=== PATIENT | female | born 1960 | race Caucasian/White ===

== ENCOUNTER 2019-04-18 20:43 | Emergency (ER) | payer OTHER ==
[~2019-04-18] VITALS: Ht 165.1 cm; Wt 108.9 kg
[2019-04-18] MEDS ORDERED: IBU800 MG PO (20:54)
[2019-04-18 21:49] VITALS: BP 191/69
== END 2019-04-18 21:49 | disposition home or self-care (01) ==
LOC: M.ERS 20:43
DX: S90.121A Contusion of right lesser toe(s) without damage to nail, initial encounter (principal); W20.8XXA Other cause of strike by thrown, projected or falling object, initial encounter; Y93.89 Activity, other specified; Y92.89 Other specified places as the place of occurrence of the external cause; Y99.8 Other external cause status

== ENCOUNTER 2019-12-07 21:24 | Inpatient (IN) | payer OTHER ==
[~2019-12-07] VITALS: Ht 165.1 cm; Wt 117.8 kg
[~2019-12-07 21:24] MED LIST: IBU800 MG PO
[2019-12-07 21:44] VITALS: BP 152/67
[2019-12-07] MEDS ORDERED: DEXAMETHASONE 44 M1 PO (22:06)
[2019-12-07 22:07] LABS: URINE BLOOD 2+ (Negative); URINE CLARITY CLEAR; URINE COLOR DARK YELLOW; URINE GLUCOSE-RANDOM TRACE (Negative); URINE KETONES NEGATIVE (Negative); URINE LEUKOCYTES-REFLEX NEGATIVE (Negative); URINE NITRITE-REFLEX NEGATIVE (Negative); URINE PROTEIN 1+ (Negative); URINE SPECIFIC GRAVITY 1.025 (1.005-1.030); URINE UROBILINOGEN 0.2 E.U./dl (0.2-1.0)
[2019-12-07] MEDS ORDERED: ZOFRAN8 MG PO (22:07)
[2019-12-07 22:08] LABS: URINE BILIRUBIN 1+ (Negative)
[2019-12-07] MEDS ORDERED: LIDOCAINE-PRILO30 GM TOP (22:08)
[2019-12-07 22:09] LABS: ICTOTEST (BILI CONFIRMATORY) Negative (Negative)
[2019-12-07 22:15] LABS: HYALINE CASTS >10 Many /LPF (None Seen); MUCUS None Seen strn/LPF (None Seen); SQUAMOUS 4-10 Moderate /LPF (0-3)
[2019-12-07 22:16] LABS: BACTERIA-REFLEX 1-9 Few /HPF (None Seen); URINE RBC 3-10 Few /HPF (0-2); URINE WBC-REFLEX 0-5 Rare /HPF (0-5)
[2019-12-07 22:17] LABS: CRYSTALS None Seen /LPF (None Seen)
[2019-12-07 22:21] LABS: HEMATOCRIT 39.8 % (37.0-47.0); HEMOGLOBIN 14.3 gm/dL (12.0-15.0); MCH 32.3 pg (26.0-34.0); MCHC 35.9 g/dL (28.0-37.0); MPV 11.4 fl. (7.2-11.1); NUCLEATED RBCS 0 /100WBC; RBC 4.42 mil/uL (4.20-5.00); RDW-CV 12.8 % (10.5-14.5); WBC 2.1 thou/uL (4.0-11.0)
[2019-12-07 22:41] LABS: CALCIUM 6.9 mg/dL (8.5-10.1); CREATININE 1.6 mg/dL (0.6-1.3); POTASSIUM 3.1 mmol/L (3.5-5.1)
[2019-12-07 22:45] LABS: ALBUMIN 2.4 g/dL (3.4-5.0); MAGNESIUM 3.6 mg/dL (1.8-2.4); TOTAL BILIRUBIN 3.4 mg/dL (<0.1-1.0); TOTAL PROTEIN 6.1 g/dL (6.4-8.2)
[2019-12-07 23:29] LABS: ABSOLUTE LYMPHOCYTES 1.3 thou/uL (0.8-5.3); ABSOLUTE MONOCYTES 0.3 thou/uL (0.0-1.2); ABSOLUTE NEUTROPHILS 0.5 thou/uL (1.6-8.1)
[2019-12-07 23:30] LABS: PLATELET ESTIMATE DECREASED
[2019-12-07 23:32] LABS: PLATELET COUNT* 47 thou/uL (150-400)
[2019-12-08 01:00] VITALS: BP 157/76
[2019-12-08 07:46] VITALS: BP 150/66
[2019-12-08 08:09] LABS: CHOLESTEROL 133 mg/dL (<200); HDL CHOLESTEROL 40 mg/dL (>40); LDL CHOLESTEROL 70 mg/dL (<100); TC:HDL 3.3 Ratio (Not establshd); TRIGLYCERIDE 115 mg/dL (<150); VLDL 23 mg/dL (<40)
[2019-12-08 08:14] LABS: SERUM ASSESSMENT Clear
[2019-12-08 09:55] LABS: HEMATOCRIT 37.1 % (37.0-47.0); HEMOGLOBIN 13.2 gm/dL (12.0-15.0); MCH 32.6 pg (26.0-34.0); MCHC 35.5 g/dL (28.0-37.0); MCV 91.6 fL (80.0-100.0); MPV 11.9 fl. (7.2-11.1); NUCLEATED RBCS 0 /100WBC; RBC 4.05 mil/uL (4.20-5.00); RDW-CV 12.9 % (10.5-14.5); WBC 2.9 thou/uL (4.0-11.0)
--- NOTE | 2019-12-08 09:55 | EKG ---
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 : 1960 Requested By: Vanessa Blount Order Number: [id number] MD: Rubio Jasso Measurements Intervals [place] Rate: 100 P: -29 WA: 172 QRS: 4 QRSD: 105 T: -46 QT: 374 QTc: 483 Interpretive Statements Sinus tachycardia Atrial premature complex Anterior infarct, old Borderline T abnormalities, inferior leads Baseline wander in lead(s) I,II,aVR No previous ECG available for comparison Electronically Signed On 12-08-2019 9:54:13 CDT by Rubio Jasso [email or web address] <ELECTRONICALLY SIGNED> By: Rubio Jasso MD, FACC 12/08/19 0954 2259 2259 Rubio Jasos MD, FAC /EPI
[2019-12-08 10:12] LABS: PLATELET COUNT* 44 thou/uL (150-400)
[2019-12-08 10:21] LABS: CALCIUM 6.3 mg/dL (8.5-10.1); CREATININE 1.7 mg/dL (0.6-1.3); MAGNESIUM 3.1 mg/dL (1.8-2.4); POTASSIUM 3.6 mmol/L (3.5-5.1)
--- NOTE | 2019-12-08 10:29 | 2DMMODE ---
[place] [address] 2 D/M-MODE ECHOCARDIOGRAM Name: ELSIELINUSGREY Room: [address] IN M.R.#: [id number] Admission: 12/07/19 Attend Phys: Riley moncada Sa Discharge: Date of : 64 Date of Service: 12/08/19 1027 Report #: [id number] THIS REPORT FOR: cc: FAM - No family physician/PCP FAM - No family physician/PCP Nelson Wood MD [facility] ~ APPROVED REPORT Study performed: 12/08/2019 09:30:06 EXAM: Limited 2D Echocardiogram Patient Location: In-Patient BSA: 2.04 HR: 97 bpm BP: 150/66 mmHg Other Information Study Quality: Fair Indications Dyspnea 2D Dimensions IVSd: 11.54 (7-11mm) LVOT Diam: 19.81 (18-24mm) LVDd: 51.78 mm PWd: 9.49 (7-11mm) Ascending Ao: 24.19 (22-36mm) LVDs: 26.17 (25-40mm) Aortic Root: 25.58 mm Volumes Left Atrial Volume (Systole) LA ESV Index: 18.70 mL/m2 Left Ventricle The left ventricle is normal size. There is normal LV segmental wall motion. There is normal left ventricular wall thickness. Left ventricular systolic function is normal. LVEF is 65-70%. Right Ventricle The right ventricle is normal size. The right ventricular systolic function is normal. Atria The left atrium size is normal. The right atrium size is [facility] [address] [place] [address] 2 D/M-MODE ECHOCARDIOGRAM Name: GREY CHERRY Room: [address] IN [facility]#: [id number] Admission: 12/07/19 Attend Phys: Riley calvin los Sa Discharge: Date of : 64 Date of Service: 12/08/19 1027 Report #: [id number] normal. Great Vessels The aortic root is normal in size. IVC is normal in size and collapses >50% with inspiration. Pericardium There is no pericardial effusion. <Conclusion> The left ventricle is normal size. There is normal left ventricular wall thickness. Left ventricular systolic function is normal. LVEF is 65-70%. IVC is normal in size and collapses >50% with inspiration. There is no pericardial effusion. <ELECTRONICALLY SIGNED> By: Nelson Wood MD, [facility] 12/08/19 1027 1027 1027 Nelson Wood MD, FACC /INF
[2019-12-08 10:38] LABS: ABSOLUTE LYMPHOCYTES 1.6 thou/uL (0.8-5.3); ABSOLUTE MONOCYTES 0.5 thou/uL (0.0-1.2); ABSOLUTE NEUTROPHILS 0.8 thou/uL (1.6-8.1); PLATELET ESTIMATE DECREASED
[2019-12-08 11:50] VITALS: BP 154/87
--- NOTE | 2019-12-08 12:11 | EKG ---
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 <ELECTRONICALLY SIGNED> By: Nelson Wood MD, [facility] 12/08/19 1209 0 0 Nelson Wood MD, [facility] /EPI
[2019-12-08 17:02] VITALS: BP 152/55
[2019-12-08 19:40] VITALS: BP 135/60
[2019-12-08 19:50] VITALS: BP 103/59
[2019-12-09 00:01] VITALS: BP 141/56
[2019-12-09 03:45] VITALS: BP 152/66
[2019-12-09 04:24] LABS: HEMATOCRIT 35.3 % (37.0-47.0); HEMOGLOBIN 12.5 gm/dL (12.0-15.0); MCH 32.4 pg (26.0-34.0); MCHC 35.5 g/dL (28.0-37.0); MCV 91.5 fL (80.0-100.0); MPV 11.1 fl. (7.2-11.1); RBC 3.85 mil/uL (4.20-5.00); RDW-CV 12.9 % (10.5-14.5)
[2019-12-09 04:44] LABS: WBC 12.5 thou/uL (4.0-11.0)
[2019-12-09 05:05] LABS: CALCIUM 6.6 mg/dL (8.5-10.1); CREATININE 1.5 mg/dL (0.6-1.3); MAGNESIUM 2.8 mg/dL (1.8-2.4); POTASSIUM 3.8 mmol/L (3.5-5.1)
[2019-12-09 09:08] VITALS: BP 159/64
--- NOTE | 2019-12-09 09:31 | EKG ---
[place] [address] ELECTROCARDIOGRAM REPORT Name: GREY CHERRY Room: [address] ADM IN M.R.#: [id number] Admission: 12/07/19 Attend Phys: Riley moncada Sa Discharge: Date of : 64 Date of Service: 12/09/19 0804 Report #: [id number] THIS REPORT FOR: //name// [facility] Test Date: 2019-12-09 Test Time: 08:04:16 Pat Name: GREY VENEGASNGOCLINUS Department: Room: [address] Gender: F Stage Rigger: KUSH : 1960 Requested By: David Lester Order Number: [id number] Laura MD: Rubio Jasso Measurements Intervals [place] Rate: 72 P: -11 ME: 164 QRS: 15 QRSD: 101 T: -29 QT: 461 QTc: 505 Interpretive Statements Sinus rhythm Borderline T abnormalities, inferior leads Borderline prolonged QT interval Compared to ECG 12/08/2019 09:11:05 No significant changes Electronically Signed On 12-09-2019 9:29:45 CDT by Rubio Jasso [email or web address] <ELECTRONICALLY SIGNED> By: Rubio Jasso MD, [facility] 12/09/19 0929 3 3 Rubio Jasso MD, [facility] /EPI
[2019-12-09 12:00] VITALS: BP 143/48
[2019-12-09 15:46] VITALS: BP 166/48
[2019-12-09 19:40] VITALS: BP 152/62
[2019-12-10] VITALS: BP 142/60
[2019-12-10 04:57] VITALS: BP 176/76
[2019-12-10 08:00] VITALS: BP 149/57
[2019-12-10 12:07] VITALS: BP 171/72
[2019-12-10 16:06] VITALS: BP 154/63
[2019-12-10 19:40] VITALS: BP 168/68
[2019-12-11] VITALS: BP 147/63
[2019-12-11 04:00] VITALS: BP 163/66
[2019-12-11 06:39] LABS: ANION GAP 7 mmol/L (7-16); BUN 38 mg/dL (7-18); CHLORIDE 101 mmol/L (98-107); CO2 28 mmol/L (21-32); CREATININE 1.5 mg/dL (0.6-1.3); GLUCOSE 346 mg/dL (70-99); MAGNESIUM 2.6 mg/dL (1.8-2.4); POTASSIUM 4.3 mmol/L (3.5-5.1); SODIUM 136 mmol/L (136-145); TROPONIN-I LEVEL <0.06 ng/mL (<0.06)
[2019-12-11 07:56] VITALS: BP 136/52
[2019-12-11] MEDS ORDERED: LEVAQUIN 500 M500 M1 PO (08:33)
[2019-12-11] MEDS ORDERED: ACIDOPHILUS1 EAC4 PO (08:33)
[2019-12-11 11:05] VITALS: BP 136/52
== END 2019-12-11 14:21 | disposition home or self-care (01) | DRG 871 ==
LOC: M.ERS 21:24 → M.TBA-ER 23:16 → M.2W 23:16
PROVIDERS: Emergency Medicine; Internal Medicine; Registered Nurse; ADMIT Family Medicine
DX: A41.50 Gram-negative sepsis, unspecified (principal); N17.0 Acute kidney failure with tubular necrosis; E87.1 Hypo-osmolality and hyponatremia; E87.2 Acidosis; Z68.41 Body mass index [BMI] 40.0-44.9, adult; T45.1X5A Adverse effect of antineoplastic and immunosuppressive drugs, initial encounter; K52.9 Noninfective gastroenteritis and colitis, unspecified; E87.6 Hypokalemia; I10 Essential (primary) hypertension; E86.9 Volume depletion, unspecified; K12.1 Other forms of stomatitis; E86.0 Dehydration; I45.81 Long QT syndrome; C50.919 Malignant neoplasm of unspecified site of unspecified female breast; E66.9 Obesity, unspecified; D70.1 Agranulocytosis secondary to cancer chemotherapy; D69.59 Other secondary thrombocytopenia; Z79.899 Other long term (current) drug therapy; Y92.89 Other specified places as the place of occurrence of the external cause

== ENCOUNTER 2019-12-14 17:04 | Inpatient (IN) | payer OTHER ==
[~2019-12-14] VITALS: Ht 165.1 cm; Wt 144.0 kg
[~2019-12-14 17:04] MED LIST changes: +ACIDOPHILUS1 EAC4 PO; +DEXAMETHASONE 44 M1 PO; +LEVAQUIN 500 M500 M1 PO; +LIDOCAINE-PRILO30 GM TOP; +ZOFRAN8 MG PO
[2019-12-14 17:11] VITALS: BP 135/63
[2019-12-14 17:30] LABS: HEMATOCRIT 32.4 % (37.0-47.0); MCH 32.1 pg (26.0-34.0); MCV 94.3 fL (80.0-100.0); MPV 10.2 fl. (7.2-11.1); NUCLEATED RBCS 1 /100WBC; PLATELET COUNT* 105 thou/uL (150-400); RBC 3.43 mil/uL (4.20-5.00); RDW-CV 12.9 % (10.5-14.5)
[2019-12-14 17:44] LABS: CALCIUM 7.5 mg/dL (8.5-10.1); CREATININE 1.8 mg/dL (0.6-1.3); POTASSIUM 4.7 mmol/L (3.5-5.1); TOTAL BILIRUBIN 1.3 mg/dL (<0.1-1.0); TOTAL PROTEIN 4.7 g/dL (6.4-8.2)
[2019-12-14 17:56] LABS: ABSOLUTE LYMPHOCYTES 3.5 thou/uL (0.8-5.3); ABSOLUTE MONOCYTES 1.4 thou/uL (0.0-1.2); ABSOLUTE NEUTROPHILS 30.1 thou/uL (1.6-8.1)
[2019-12-14 17:57] LABS: PLATELET ESTIMATE DECREASED; POLYCHROMASIA 1+
[2019-12-14 17:58] LABS: ANISOCYTOSIS Occasional
--- NOTE | 2019-12-14 18:36 | NUR ---
PT GIVEN CLEAR LIQUID DIET DINNER TRAY, PLACED ON SIDE TABLE.
[2019-12-14 19:59] VITALS: BP 157/71
[2019-12-14 20:30] VITALS: BP 155/63
[2019-12-15 00:16] VITALS: BP 157/61
[2019-12-15 04:09] VITALS: BP 145/59
[2019-12-15 05:36] LABS: HEMATOCRIT 30.3 % (37.0-47.0); HEMOGLOBIN 10.4 gm/dL (12.0-15.0); MCH 32.3 pg (26.0-34.0); MCHC 34.4 g/dL (28.0-37.0); MCV 93.8 fL (80.0-100.0); MPV 10.2 fl. (7.2-11.1); RBC 3.23 mil/uL (4.20-5.00); RDW-CV 12.9 % (10.5-14.5); WBC 32.8 thou/uL (4.0-11.0)
[2019-12-15 05:52] LABS: ALBUMIN 1.9 g/dL (3.4-5.0); CALCIUM 6.8 mg/dL (8.5-10.1); CREATININE 1.7 mg/dL (0.6-1.3); MAGNESIUM 1.7 mg/dL (1.8-2.4); POTASSIUM 4.5 mmol/L (3.5-5.1); TOTAL BILIRUBIN 1.3 mg/dL (<0.1-1.0); TOTAL PROTEIN 4.3 g/dL (6.4-8.2)
--- NOTE | 2019-12-15 07:20 | NUR ---
CHANGE OF SHIFT, BEDSIDE REPORT GIVEN PATIENT SEEN AT BEDSIDE, IN CHAIR WATCHING TV ASSUMED APTIENT CARE
--- NOTE | 2019-12-15 07:36 | NUR ---
RECEIVED PT FROM ED AT APPROX 2030. PT IS AWAKE AND ORIENTED X4. PT IS TRACING SR ON THE ALL SOURCE INTELLIGENCE. ADMISSION ASSESSMENT DONE AND CHARTED. PT C/O NAUSEA RELIEVED BY ZOFRAN GIVEN PER OCT. IV HYDRATION ONGOING. PT ADVISED ON THE USE OF CALL LIGHT AND ON ROOM SET UP. CALL LIGHT WITHIN REACH. HOURLY ROUNDING DONE FOR PT SAFETY. HIGH FALL PRECAUTIONS IN PLACE.
[2019-12-15 08:00] VITALS: BP 172/65
--- NOTE | 2019-12-15 09:21 | EKG ---
[place] [address] ELECTROCARDIOGRAM REPORT Name: GREY CHERRY Room: [address] ADM IN M.R.#: [id number] Admission: 12/14/19 Attend Phys: David Lester, Discharge: Date of : 64 Date of Service: 12/14/19 183 Report #: [id number] THIS REPORT FOR: //name// [facility] ED Test Date: 2019-12-14 Test Time: 18:31:24 Pat Name: GREY CHERRY Department: Room: [facility] Gender: F Pattern Weaver: : 1960 Requested By: Mahad Ybarra Order Number: [id number] MD: Dayron Miramontes Measurements Intervals [place] Rate: 96 P: 68 LA: 147 QRS: 30 QRSD: 82 T: 50 QT: 380 QTc: 481 Interpretive Statements Sinus rhythm Baseline wander in lead(s) V3 Compared to ECG 12/09/2019 08:04:16 T-wave abnormality no longer present Electronically Signed On 12-15-2019 9:19:47 CDT by Dayron Miramontes [email or web address] <ELECTRONICALLY SIGNED> By: Dayron Miramontes MD, FAC 12/15/19 0919 30 30 Dayron Miramontes MD, FAC /EPI
[2019-12-15 11:42] VITALS: BP 158/66
--- NOTE | 2019-12-15 14:59 | EKG ---
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 Steward/Stewardess: : 1960 Requested By: David Lester Order Number: [id number] Laura MD: Dayron Miramontes Measurements Intervals [place] Rate: 95 P: 57 ND: 148 QRS: 16 QRSD: 91 T: 40 QT: 397 QTc: 499 Interpretive Statements Sinus rhythm Borderline prolonged QT interval Compared to ECG 12/14/2019 18:31:24 No significant changes Electronically Signed On 12-15-2019 14:57:37 CDT by Dayron Miramontes [email or web address] <ELECTRONICALLY SIGNED> By: Dayron Miramontes MD, [facility] 12/15/19 1457 0906 0906 Dayron Miramontes MD, [facility] /EPI
[2019-12-15 16:47] VITALS: BP 155/58
[2019-12-15 20:06] VITALS: BP 156/65
[2019-12-16 00:40] VITALS: BP 134/46
[2019-12-16 04:28] VITALS: BP 145/61
[2019-12-16 04:45] LABS: HEMATOCRIT 28.7 % (37.0-47.0); MCH 32.4 pg (26.0-34.0); MCHC 34.8 g/dL (28.0-37.0); MCV 93.3 fL (80.0-100.0); MPV 10.1 fl. (7.2-11.1); RBC 3.08 mil/uL (4.20-5.00); RDW-CV 13.2 % (10.5-14.5); WBC 31.4 thou/uL (4.0-11.0)
[2019-12-16 05:07] LABS: ALBUMIN 1.8 g/dL (3.4-5.0); CALCIUM 7.2 mg/dL (8.5-10.1); CREATININE 1.8 mg/dL (0.6-1.3); TOTAL BILIRUBIN 1.3 mg/dL (<0.1-1.0); TOTAL PROTEIN 4.2 g/dL (6.4-8.2)
--- NOTE | 2019-12-16 05:34 | NUR ---
PT IS ABLE TO COMMUNICATE HER NEEDS TO STAFF EFFECTIVELY. SHE HAS DENIED THE NEED FOR PAIN MEDICATION UP TO THIS TIME. C. DIFF TESTING CAME BACK NEGATIVE. PT HAD ONE INSTANCE OF NAUSEA, SO FAR, OVERNIGHT; MEDS GIVEN, TOLERATED WELL.
[2019-12-16 08:53] VITALS: BP 146/57
--- NOTE | 2019-12-16 09:04 | NUR ---
Pt is A&O. Resides at home with family. Independent. No DME. No hx of HH or SNF. Pt admitted with chemo nausea and possible cdiff. Following for dc needs.
[2019-12-16 12:33] VITALS: BP 137/50
[2019-12-16 20:53] VITALS: BP 147/61
[2019-12-17 00:25] VITALS: BP 155/70
[2019-12-17 02:07] LABS: GLYCOHEMOGLOBIN (HGB A1C) 7.6 % (4.8-5.6)
[2019-12-17 04:15] VITALS: BP 126/54
[2019-12-17 05:00] LABS: HEMATOCRIT 28.4 % (37.0-47.0); HEMOGLOBIN 9.8 gm/dL (12.0-15.0); MCH 32.4 pg (26.0-34.0); MCHC 34.4 g/dL (28.0-37.0); MCV 94.1 fL (80.0-100.0); MPV 10.1 fl. (7.2-11.1); NUCLEATED RBCS 0 /100WBC; PLATELET COUNT* 93 thou/uL (150-400); RBC 3.02 mil/uL (4.20-5.00); RDW-CV 13.4 % (10.5-14.5)
[2019-12-17 05:32] LABS: ALBUMIN 1.9 g/dL (3.4-5.0); CALCIUM 6.9 mg/dL (8.5-10.1); CREATININE 2.6 mg/dL (0.6-1.3); POTASSIUM 3.8 mmol/L (3.5-5.1); TOTAL BILIRUBIN 1.5 mg/dL (<0.1-1.0); TOTAL PROTEIN 4.2 g/dL (6.4-8.2)
--- NOTE | 2019-12-17 06:04 | NUR ---
PT IS ABLE TO COMMUNICATE HER NEEDS TO STAFF EFFECTIVELY. CURRENT PAIN MEDICATION REGIMEN HAS BEEN ADEQUATE FOR CONTROLLING HER PAIN UP TO THIS TIME. PT HAS HAD SOME NAUSEA OVERNIGHT; MEDICATION HAS BEEN TOLERATED WELL.
[2019-12-17 07:50] LABS: ABSOLUTE LYMPHOCYTES 2.7 thou/uL (0.8-5.3); ABSOLUTE MONOCYTES 1.4 thou/uL (0.0-1.2); ABSOLUTE NEUTROPHILS 29.9 thou/uL (1.6-8.1); ANISOCYTOSIS 1+; PLATELET ESTIMATE DECREASED; POIKILOCYTOSIS 1+
[2019-12-17 07:51] LABS: POLYCHROMASIA 1+
[2019-12-17 12:36] VITALS: BP 136/51
--- NOTE | 2019-12-17 16:26 | NUR ---
PATINET RESTING IN BED. VSS AND PATIENT IN NOAPPRAENT SIGNS OF DISTRESS. HOARSNESS TO VOICE. PATIENT DENIES PAIN. UP WITH STANDBY ASSTANCE. HOURLY ROUNDING COMPLETED FOR PATIENT SAFETY.
[2019-12-17 18:48] VITALS: BP 133/52
[2019-12-17 20:57] VITALS: BP 115/48
[2019-12-17 23:54] VITALS: BP 110/44
[2019-12-18 04:00] VITALS: BP 122/49
--- NOTE | 2019-12-18 05:26 | NUR ---
PT IS ABLE TO COMMUNICATE HER NEEDS TO STAFF EFFECTIVELY. CURRENT PAIN MEDICATION REGIMEN HAS BEEN ADEQUATE FOR CONTROLLING HER PAIN UP TO THIS TIME. SHE HAS BEEN UP WITH SBA TO THE BATHROOM UP TO THIS TIME.
[2019-12-18 06:45] LABS: ABSOLUTE BASOPHILS 0.2 thou/uL (0.0-0.2); ABSOLUTE LYMPHOCYTES 2.9 thou/uL (0.8-5.3); ABSOLUTE MONOCYTES 2.1 thou/uL (0.0-1.2); ABSOLUTE NEUTROPHILS 27.3 thou/uL (1.6-8.1); BASOPHILS 0.7 %; HEMATOCRIT 26.7 % (37.0-47.0); HEMOGLOBIN 9.1 gm/dL (12.0-15.0); LYMPHOCYTES 9.1 %; MCH 32.2 pg (26.0-34.0); MCV 94.7 fL (80.0-100.0); MONOCYTES 6.3 %; MPV 10.6 fl. (7.2-11.1); NUCLEATED RBCS 0 /100WBC; PLATELET COUNT* 97 thou/uL (150-400); POLYS 83.9 %; RBC 2.82 mil/uL (4.20-5.00); RDW-CV 13.4 % (10.5-14.5); WBC 32.6 thou/uL (4.0-11.0)
[2019-12-18 06:53] LABS: ALBUMIN 1.7 g/dL (3.4-5.0); CALCIUM 7.1 mg/dL (8.5-10.1); CREATININE 3.4 mg/dL (0.6-1.3); POTASSIUM 3.8 mmol/L (3.5-5.1); TOTAL BILIRUBIN 1.5 mg/dL (<0.1-1.0); TOTAL PROTEIN 3.9 g/dL (6.4-8.2)
[2019-12-18 07:44] VITALS: BP 113/49
[2019-12-18 13:00] VITALS: BP 90/45
[2019-12-18 16:30] VITALS: BP 114/28
--- NOTE | 2019-12-18 18:02 | NUR ---
PATINET RESTING IN BED. BLOOD PRESSURE WAS LOW TODAY, MD INFORMED AND ORDERS FOR NS BOLUS WERE RECEIVED. BLOOD PRESSURE IMMPROVED WITH THERAPY. HOURLY ROUNDING FO RPATIENT SAFETY.
[2019-12-18 18:18] LABS: CALCIUM 7.1 mg/dL (8.5-10.1); CREATININE 4.3 mg/dL (0.6-1.3)
[2019-12-18 20:00] VITALS: BP 110/40
[2019-12-19] VITALS (17 sets, daily range): BP systolic 69–148; BP diastolic 19–42
[2019-12-19 04:49] LABS: HEMATOCRIT 24.2 % (37.0-47.0); HEMOGLOBIN 8.3 gm/dL (12.0-15.0); MCH 32.9 pg (26.0-34.0); MCHC 34.4 g/dL (28.0-37.0); MCV 95.4 fL (80.0-100.0); MPV 10.7 fl. (7.2-11.1); RBC 2.54 mil/uL (4.20-5.00); RDW-CV 13.6 % (10.5-14.5); WBC 33.1 thou/uL (4.0-11.0)
[2019-12-19 05:10] LABS: ALBUMIN 1.5 g/dL (3.4-5.0); CALCIUM 6.8 mg/dL (8.5-10.1); CREATININE 4.8 mg/dL (0.6-1.3); POTASSIUM 4.1 mmol/L (3.5-5.1)
--- NOTE | 2019-12-19 11:37 | NUR ---
ASSUMED CARE OF PT APPOX 0730. REASSESMENT COMPLETED CHARTED. MEDICATIONS GIVEN CHARTED. PT CARE DISCUSSED WITH PHYSICAN AND CHARGE NURSE. SAFTEY PRECAUTIONS UTILIZED. HOURLY ROUNDING.
--- NOTE | 2019-12-19 12:11 | NUR ---
PT WAS UP IN CHAIR. PTS BP LOW, MANUAL BP TAKEN ON BOTH ARMS. PHYSICAN NOTIFIED. PT PLACED IN BED HEAD DOWN AND FEET ELEVATED. WILL CONTINUE TO MONITOR.
[2019-12-19 15:16] LABS: CALCIUM 7.3 mg/dL (8.5-10.1); CREATININE 5.3 mg/dL (0.6-1.3); POTASSIUM 4.6 mmol/L (3.5-5.1)
--- NOTE | 2019-12-19 15:56 | EKG ---
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 : 1960 Requested By: Tesfaye Duran Order Number: [id number] Laura MD: Rubio Jsaso Measurements Intervals [place] Rate: 82 P: 86 WI: 186 QRS: 33 QRSD: 81 T: 31 QT: 402 QTc: 470 Interpretive Statements Sinus rhythm Low voltage, precordial leads Borderline T wave abnormalities Compared to ECG 12/15/2019 09:06:24 Low QRS voltage now present Electronically Signed On 12-19-2019 15:54:36 CDT by Rubio Jasso [email or web address] <ELECTRONICALLY SIGNED> By: Rubio Jasso MD, [facility] 12/19/19 1554 1431 1431 Rubio Jasso MD, [facility] /EPI
[2019-12-19 16:41] LABS: BE -15.3 mmol/L (-2 to +3); PO2 118.6 mmHg (75.0-100.0); pH 7.324 (7.340-7.450)
[2019-12-19 16:43] LABS: PCO2 17.4 mmHg (35.0-45.0)
--- NOTE | 2019-12-19 17:32 | NUR ---
PT REPORTED FEELING LIGHTHEADED AND NAUSATED, BPS LOW AND NOT IMPROVING DURING SHIFT. CRITICAL LABS REPORTED TO THE PHYSICAN, ORDERS RECIEVED. NEPHROLOGY CALLED WITH NEW ORDERS FOR THE PT. GILLIAM PLACED FOR CRITICAL I&Os. REPORT CALLED TO ICU, PT TRANSFERED TO ICU APPROX 171.
--- NOTE | 2019-12-19 19:42 | NUR ---
PATIENT TRANSFERED FROM TELE DUE TO LOW BP PORT ACCESSED. PT CO BACK PAIN. GILLIAM WITH SMALL AMOUNT OF URINE 117 ML SCANNED IN BLADDER. CALLED DR NICOLE WITH [facility]. HE SUGGESTED ANTIBIOTICS. GAVE REPORT TO GERARDO Corrigan
[2019-12-20] VITALS (74 sets, daily range): BP systolic 37–186; BP diastolic 18–151
[2019-12-20 04:15] LABS: URINE BLOOD 3+ (Negative); URINE CLARITY CLEAR; URINE COLOR YELLOW; URINE GLUCOSE-RANDOM TRACE (Negative); URINE KETONES NEGATIVE (Negative); URINE LEUKOCYTES 1+ (Negative); URINE NITRITE NEGATIVE (Negative); URINE PROTEIN 2+ (Negative); URINE SPECIFIC GRAVITY >= 1.030 (1.005-1.030); URINE UROBILINOGEN 0.2 E.U./dl (0.2-1.0)
[2019-12-20 04:22] LABS: ICTOTEST (BILI CONFIRMATORY) Negative (Negative); URINE BILIRUBIN 1+ (Negative)
[2019-12-20 05:18] LABS: BACTERIA 1-9 Few /HPF (None Seen); CASTS None Seen /LPF (None Seen); MUCUS 0-3 Light strn/LPF (None Seen); SQUAMOUS NONE SEEN /LPF (0-3); URINE RBC 3-10 Few /HPF (0-2); URINE WBC 6-15 Few /HPF (0-5)
[2019-12-20 05:19] LABS: AMORPHOUS URATES Few /LPF (None Seen)
[2019-12-20 05:39] LABS: HEMATOCRIT 26.7 % (37.0-47.0); HEMOGLOBIN 8.9 gm/dL (12.0-15.0); MCH 32.9 pg (26.0-34.0); MCHC 33.4 g/dL (28.0-37.0); MCV 98.4 fL (80.0-100.0); MPV 9.4 fl. (7.2-11.1); NUCLEATED RBCS 0 /100WBC; RBC 2.71 mil/uL (4.20-5.00); RDW-CV 14.2 % (10.5-14.5)
[2019-12-20 05:46] LABS: PLATELET COUNT* 199 thou/uL (150-400)
[2019-12-20 05:47] LABS: WBC 47.2 thou/uL (4.0-11.0)
[2019-12-20 05:59] LABS: ALBUMIN 1.6 g/dL (3.4-5.0); TOTAL BILIRUBIN 3.2 mg/dL (<0.1-1.0)
[2019-12-20 06:11] LABS: ALBUMIN 1.6 g/dL (3.4-5.0); CALCIUM 7.9 mg/dL (8.5-10.1); CREATININE 6.1 mg/dL (0.6-1.3); MAGNESIUM 2.2 mg/dL (1.8-2.4); PHOSPHORUS* 10.1 mg/dL (2.5-4.9); POTASSIUM 5.1 mmol/L (3.5-5.1)
--- NOTE | 2019-12-20 06:18 | NUR ---
PT. REMAINS MAXED OUT ON LEVOPHED GTT. CRITICAL LAB RESULTS RECEIVED THIS A.M., PAGE SENT TO DR. HUNTER. 20CC URINE OUTPUT. PT. HAD DIARRHEA THROUGHOUT SHIFT, ABLE TO HELP ASSIST WITH TURNS AND USE BEDPAN BUT IS GETTING INCREASINGLY MORE LETHARGIC. IVF REMAIN INFUSING. AWAITING CALL BACK FROM DR. HUNTER, WILL CONTINUE TO MONITOR.
[2019-12-20 06:37] LABS: ABSOLUTE BASOPHILS 0.5 thou/uL (0.0-0.2); ABSOLUTE LYMPHOCYTES 3.8 thou/uL (0.8-5.3); ABSOLUTE MONOCYTES 5.7 thou/uL (0.0-1.2); ABSOLUTE NEUTROPHILS 37.3 thou/uL (1.6-8.1); GIANT PLATELETS RARE; METAMYELOCYTES 2 %; PLATELET ESTIMATE ADEQUATE
[2019-12-20 06:38] LABS: ANISOCYTOSIS 2+; MACROCYTES 1+; POLYCHROMASIA 1+; TOXIC GRANULATION 2+
[2019-12-20 08:55] LABS: BE -24.6 mmol/L (-2 to +3); PO2 102.7 mmHg (75.0-100.0)
[2019-12-20 08:58] LABS: PCO2 17.2 mmHg (35.0-45.0); pH 7.026 (7.340-7.450)
--- NOTE | 2019-12-20 09:30 | NUR ---
PT INTUBATED AT 0920. INCREASING RESP DISTRESS AND LOC CHANGE. NO ISSUES WITH INTUBATION. PT REQUIRING MORE PRESSORS. TEMP DIALYSIS LINE TO BE PLACED FOR CRRT. WILL CONTINUE TO MONITOR.
[2019-12-20 11:22] LABS: BE -27.2 mmol/L (-2 to +3); PCO2 29.2 mmHg (35.0-45.0); PO2 117.1 mmHg (75.0-100.0)
[2019-12-20 11:24] LABS: pH 6.884 (7.340-7.450)
[2019-12-20 11:57] LABS: CREATININE 6.1 mg/dL (0.6-1.3); POTASSIUM 5.1 mmol/L (3.5-5.1)
[2019-12-20 12:03] LABS: HEMOGLOBIN 9.3 gm/dL (12.0-15.0); MPV 9.4 fl. (7.2-11.1)
[2019-12-20 12:07] LABS: HEMATOCRIT 28.7 % (37.0-47.0); MCH 32.6 pg (26.0-34.0); MCHC 32.4 g/dL (28.0-37.0); MCV 100.5 fL (80.0-100.0); NUCLEATED RBCS 1 /100WBC; PLATELET COUNT* 217 thou/uL (150-400); RBC 2.86 mil/uL (4.20-5.00); RDW-CV 14.5 % (10.5-14.5)
[2019-12-20 12:11] LABS: PROTIME 74.9 Seconds (9.20-11.50)
[2019-12-20 12:11] LABS: ALBUMIN 1.6 g/dL (3.4-5.0); TOTAL BILIRUBIN 3.1 mg/dL (<0.1-1.0); TOTAL PROTEIN 3.9 g/dL (6.4-8.2)
[2019-12-20 12:14] LABS: WBC 59.7 thou/uL (4.0-11.0)
[2019-12-20 12:15] LABS: INR 7.9
[2019-12-20 12:36] LABS: ABSOLUTE EOSINOPHILS 0.6 thou/uL (0.0-0.7); ABSOLUTE LYMPHOCYTES 5.4 thou/uL (0.8-5.3); ABSOLUTE MONOCYTES 10.1 thou/uL (0.0-1.2); ABSOLUTE NEUTROPHILS 43.6 thou/uL (1.6-8.1); ATYPICAL LYMPHS 5 %; ATYPICAL MONONUCLEARS 3 %
[2019-12-20 12:37] LABS: PLATELET ESTIMATE ADEQUATE
[2019-12-20 15:41] LABS: HEMATOCRIT 24.7 % (37.0-47.0); MCH 32.3 pg (26.0-34.0); MCHC 32.3 g/dL (28.0-37.0); MCV 99.8 fL (80.0-100.0); MPV 9.6 fl. (7.2-11.1); RBC 2.47 mil/uL (4.20-5.00); RDW-CV 14.8 % (10.5-14.5)
[2019-12-20 15:51] LABS: WBC 56.5 thou/uL (4.0-11.0)
[2019-12-20 16:12] LABS: CALCIUM 7.5 mg/dL (8.5-10.1); MAGNESIUM 2.2 mg/dL (1.8-2.4); PHOSPHORUS* 9.2 mg/dL (2.5-4.9); POTASSIUM 5.4 mmol/L (3.5-5.1)
[2019-12-20 16:13] LABS: CREATININE 4.8 mg/dL (0.6-1.3)
[2019-12-20 19:10] LABS: HEMATOCRIT 23.4 % (37.0-47.0); HEMOGLOBIN 7.6 gm/dL (12.0-15.0); MCH 32.1 pg (26.0-34.0); MCHC 32.3 g/dL (28.0-37.0); MCV 99.3 fL (80.0-100.0); MPV 9.4 fl. (7.2-11.1); RBC 2.36 mil/uL (4.20-5.00); RDW-CV 14.5 % (10.5-14.5)
[2019-12-20 19:11] LABS: WBC 53.6 thou/uL (4.0-11.0)
[2019-12-20 19:17] LABS: CALCIUM 7.6 mg/dL (8.5-10.1); CREATININE 4.3 mg/dL (0.6-1.3); PHOSPHORUS* 8.7 mg/dL (2.5-4.9); POTASSIUM 5.4 mmol/L (3.5-5.1)
--- NOTE | 2019-12-20 19:52 | NUR ---
PT ASSESSMENT CHARTED. BP STILL LOW MAXED ON 5 PRESSORS.PT ON PRECEDEX FOR SEDATION. SHE IS RESPONSIVE TO NAME AND FOLLOWS COMMANDS. ART LINE AND TEMP DIALYSIS CATH PLACED TODAY. PT UNABLE TO TOLERATE LAYING FLAT BP DECREASED WHEN TURNED/MOVED SIDE TO SIDE OR FLAT. INTUBATED AT 0920. CRRT STARTED AT 1100. DR. BEAR'S OFFICE CONTACTED PER LENI ANDERSEN. THIS WRITTER AND LENI ANDERSEN UPDATED FAMILY. BOTH OF HER SON'S WERE ABLE TO COME IN AND SEE HER WHICH WAS OKAYED WITH ADMINISTRATION.
[2019-12-20 23:35] LABS: HEMATOCRIT 23.7 % (37.0-47.0); HEMOGLOBIN 7.8 gm/dL (12.0-15.0); MCH 32.4 pg (26.0-34.0); MCHC 32.7 g/dL (28.0-37.0); MCV 99.1 fL (80.0-100.0); MPV 9.5 fl. (7.2-11.1); RBC 2.4 mil/uL (4.20-5.00); RDW-CV 14.2 % (10.5-14.5)
[2019-12-20 23:43] LABS: CALCIUM 7.2 mg/dL (8.5-10.1); CREATININE 3.8 mg/dL (0.6-1.3); MAGNESIUM 1.8 mg/dL (1.8-2.4); PHOSPHORUS* 7.9 mg/dL (2.5-4.9); POTASSIUM 5.5 mmol/L (3.5-5.1)
[2019-12-21] VITALS (39 sets, daily range): BP systolic 41–136; BP diastolic 31–55
[2019-12-21 01:53] LABS: FIBRINOGEN 69 mg/dL (200-340)
[2019-12-21 03:53] LABS: HEMATOCRIT 20.7 % (37.0-47.0); MCH 32.7 pg (26.0-34.0); MCHC 33.5 g/dL (28.0-37.0); MCV 97.6 fL (80.0-100.0); RBC 2.12 mil/uL (4.20-5.00); RDW-CV 14.3 % (10.5-14.5)
[2019-12-21 03:59] LABS: HEMOGLOBIN 6.9 gm/dL (12.0-15.0); WBC 46.6 thou/uL (4.0-11.0)
[2019-12-21 04:10] LABS: CREATININE 3.6 mg/dL (0.6-1.3); MAGNESIUM 1.9 mg/dL (1.8-2.4); PHOSPHORUS* 7.8 mg/dL (2.5-4.9); POTASSIUM 5.3 mmol/L (3.5-5.1)
--- NOTE | 2019-12-21 05:16 | NUR ---
ASSUMED CARE AT 1900H, ON VENT AT 45% THEN INCREASE TO 70% EARLY THIS MORNING.LEVO,DOPA,VASO,NEOS AND EPI DRIP AT MAX. TRIED TO TO HOLD EPI WHEN BP WAS GOOD BUT THEN STARTED AGAIN PAST MIDNIGHT.STILL WITH BLEEDING ON HER MOUTH, 2 UNITS FFP GIVEN AND TO FOLLOW 2 MORE UNITS.CRRT STOP AT 0430H, KEEPS ON ALARMING AND CLOTTED.CONTINUE MONITORING AND TOWARD GOALS.
[2019-12-21 07:25] LABS: MCH 32.5 pg (26.0-34.0); MCHC 32.4 g/dL (28.0-37.0); MCV 100.4 fL (80.0-100.0); MPV 9.1 fl. (7.2-11.1); RBC 1.69 mil/uL (4.20-5.00); RDW-CV 14.7 % (10.5-14.5); WBC 34.3 thou/uL (4.0-11.0)
[2019-12-21 07:29] LABS: HEMOGLOBIN 5.5 gm/dL (12.0-15.0)
[2019-12-21 07:37] LABS: HEPATITIS B SURFACE AG Negative (Negative)
[2019-12-21 07:37] LABS: HEPATITIS B SURFACE AG Negative (Negative)
[2019-12-21 07:44] LABS: PROTIME 21.8 Seconds (9.20-11.50)
[2019-12-21 07:45] LABS: INR 2.2
[2019-12-21 07:52] LABS: ALBUMIN 1.9 g/dL (3.4-5.0); ANION GAP 24 mmol/L (7-16); BUN 62 mg/dL (7-18); CALCIUM 6.9 mg/dL (8.5-10.1); CHLORIDE 90 mmol/L (98-107); CREATININE 3.8 mg/dL (0.6-1.3); GLUCOSE 176 mg/dL (70-99); MAGNESIUM 2.1 mg/dL (1.8-2.4); PHOSPHORUS* 9.6 mg/dL (2.5-4.9); POTASSIUM 5.8 mmol/L (3.5-5.1); SODIUM 123 mmol/L (136-145); TOTAL BILIRUBIN 4.1 mg/dL (<0.1-1.0); TOTAL PROTEIN 4.2 g/dL (6.4-8.2)
[2019-12-21 08:09] LABS: FIBRINOGEN 87 mg/dL (200-340)
[2019-12-21 08:10] LABS: ALKALINE PHOSPHATASE 1079 U/L (46-116); CO2 9 mmol/L (21-32)
[2019-12-21 08:21] LABS: SGPT 8013 U/L (30-65)
[2019-12-21 08:40] LABS: SGOT < 20000 U/L (15-37)
--- NOTE | 2019-12-21 10:00 | NUR ---
PT ASSESSMENT CHARTED. UNABLE TO RESTART CRRT DUE TO LOW BLOOD PRESSURE. PRECEDEX TURNED OFF AT 0700 AND RESTRAINTS REMOVED. PT NON-RESPONSIVE EXCEPT TO PAIN. 1 UNIT PRBC INFUSING. PT IS BEGINNING TO MOTTLE. BLOOD DRAINING FROM MOUTH AND LITTLE SKIN TEARS IN HER FACE. HIMS CALLED AND TALKED WITH SON THIS MORNING AND HE WANTS TO CONTINUE ON A FULL CODE. HE IS ON HIS WAY TO COME SEE HER. WILL CONTINUE TO MONITOR.
[2019-12-21 10:01] LABS: BE -23.8 mmol/L (-2 to +3); PCO2 21.7 mmHg (35.0-45.0); PO2 98.9 mmHg (75.0-100.0)
[2019-12-21 10:03] LABS: pH 7.002 (7.340-7.450)
--- NOTE | 2019-12-21 12:00 | CON ---
[address] [address] CONSULTATION Name: GREY CHERRY Room: [address] IN .R.#: [id number] Admission: 12/14/19 Attend Phys: David Lester MD Discharge: Date of : 64 Report #: [id number] THIS REPORT FOR: //name// cc: BABAK Boo family physician/PCP BABAK - Ema family physician/PCP ~ THIS REPORT FOR: //name// CC: BABAK physician/PCP David Lester DATE OF SERVICE: 12/20/2019 INFECTIOUS DISEASE CONSULTATION ATTENDING PHYSICIAN: Dr. Duran. REASON FOR EVALUATION: Septic shock with profound acidemia, respiratory failure, multiorgan dysfunction including renal failure, shock liver and encephalopathy as well. HISTORY OF PRESENT ILLNESS: Chart reviewed, the patient examined. This is a 59-year-old woman with a diagnosis of stage 2 breast cancer in latter part of 10/2019. Course has been complicated by initiation of chemotherapy. She was hospitalized earlier in November, was found to have pancytopenia, intractable nausea and emesis and she was felt to be enteritis as well. She was treated symptomatically and ultimately discharged after 4 days. She was readmitted on the with similar type signs and symptoms, and she has had progressive worsening since she has been hospitalized. She was initiated ICU level of care. Now, she is pending intubation. She has markedly elevated lactic acid. White counts of 47,000. ABGs: pH of 7.026, pCO2 of 17.2. Lactic acid was 15.1. White count of 47.2, neutrophilia. She is hyponatremic with sodium of 121, creatinine is 6.0, AST of 3229, ALT of 1360 and albumin of 1.6. Urinalysis did show moderate pyuria. Recent chest x-ray otherwise unremarkable. Empirically started on meropenem. She is on pressor support at this point. She has been afebrile. She has had some liquid stools. ALLERGIES: None known. MEDICATIONS: Include vancomycin, meropenem, methylprednisolone, p.r.n. analgesics and antiemetics. PAST MEDICAL HISTORY: History of the breast cancer diagnosed in 10/2019, had chemotherapy-induced adverse drug effects including intractable nausea, vomiting and neutropenia. She does have morbid obesity and does have a [place] [address] CONSULTATION Name: THEOORESTESCÉSARLINUSGREY M Room: [address]#: [id number] Admission: 12/14/19 Attend Phys: David Lester MD Discharge: Date of : 64 Report #: [id number] SOCIAL HISTORY: Nonsmoker, no ethanol. FAMILY HISTORY: Noncontributory. REVIEW OF SYSTEMS: Very limited, given her marked distress, pending intubation. PHYSICAL EXAMINATION: GENERAL: She is somewhat lethargic as well. VITAL SIGNS: Temperature 97.4, pulse 116, respirations 27 and blood pressure is 124/47. SKIN: Warm, dry. No rashes. HEENT: Normocephalic. Extraocular muscles intact. NECK: Supple. LUNGS: Few scattered coarse breath sounds. HEART: Distant, regular, tachycardic. I do not appreciate murmur. ABDOMEN: Obese, mildly distended, soft, nontender. EXTREMITIES: No cyanosis. GENITOURINARY AND RECTAL: Deferred. LABORATORY DATA: As described above. ABGs: pH of 7.026, pCO2 of 17.2 and pO2 of 102.7 that is on 2 liters. Glucose was 82. Lactic acid was 15.1. CBC: White count of 47.2, hemoglobin and hematocrit of 8.9 and 26.7, platelets of 199. There is a pretty marked monocytosis, has got toxic granulations and toxic vacuolization 2+. Electrolytes: Sodium 121, potassium 5.0, chloride 89, bicarbonate is 8, anion gap elevated at 24, BUN and creatinine of 99 and 6.0, glucose of 86, AST of 3229, total bilirubin of 3.2 and ALT of 1360. Urinalysis, 6-[address] abdomen and pelvis on 12/06, which showed circumferential wall thickening of the second and third part of the duodenum with surrounding retroperitoneal fat stranding consistent with enteritis. A CT of the chest, no evidence of pulmonary embolus, but not excluded circumferential thickening of the esophagus. ASSESSMENT AND PLAN: Septic shock, complicated by multiple organ renal failure and profound acidemia. The patient had recent chemotherapy, seemingly has rebounded. Also had some loose stools, would be concerned about an intraabdominal process as a source. We will check an ultrasound. She had reasonable coverage with the Merrem and vancomycin. We will dose with Flagyl in the interim, check a C. diff, dose with fluconazole as well. Blood cultures are pending. She is critically ill. I suspect we will clinically deteriorate prior to improving, so I will check some additional labs. <ELECTRONICALLY SIGNED> By: Reese Marcelo MD 12/21/19 1200 1043 1150Jocarlo Marcelo MD /nt
[2019-12-21 12:16] LABS: HEMOGLOBIN 5.9 gm/dL (12.0-15.0)
[2019-12-21 12:17] LABS: HEMATOCRIT 19.1 % (37.0-47.0)
--- NOTE | 2019-12-21 12:25 | NUR ---
ICU rounds: Per dr, Pt not progressing towards goals. Code blue called.
--- NOTE | 2019-12-21 14:16 | NUR ---
TIME OF :1227 CODE BLUE CALLED AT 1217
--- NOTE | 2019-12-21 18:31 | NUR ---
PT RELEASED TO [facility] HOME AT THIS TIME.
--- NOTE | 2019-12-22 12:46 | CON ---
[address] [address] CONSULTATION Name: GREY CHERRY Room: [address] IN .R.#: [id number] Admission: 12/14/19 Attend Phys: David Lester MD Discharge: 12/21/19 Date of : 64 Report #: [id number] THIS REPORT FOR: //name// cc: BABAK Boo family physician/PCP BABAK - Ema family physician/PCP ~ THIS REPORT FOR: //name// CC: BABAK physician/PCP David Lester NEPHROLOGY CONSULT CONSULTING PHYSICIAN: David Lester MD REASON FOR CONSULTATION: Acute kidney injury. HISTORY OF PRESENT ILLNESS: The patient is a 59-year-old female with a history of breast cancer, on chemotherapy, recently started chemotherapy at the beginning of this month, was admitted with some nausea and diarrhea who I am asked to see for acute kidney injury. Creatinine was 3.4, up to 4.3 and today 4.8. Sodium is down to 122, was treated with 100 mL of 3% saline yesterday and another 100 mL of 3% saline today. She does complain of some shortness of breath and feels more swollen. She does have some lower extremity edema. Blood pressures have been on the low side as well. REVIEW OF SYSTEMS: Constitutional, psych, heme, eyes, ENT, respiratory, cardiac, GI, , endocrine, all negative except as documented above. PAST MEDICAL HISTORY: Breast cancer, morbid obesity. SOCIAL HISTORY: No tobacco. FAMILY HISTORY: Not pertinent in this 59-year-old female. CURRENT MEDICATIONS: Reviewed. PHYSICAL EXAMINATION: VITAL SIGNS: Blood pressure is 92/56, pulse 65, respirations 18 and temperature 36.2. GENERAL: No acute distress. EYES: Open. EARS: Externally normal. NECK: Supple. CARDIOVASCULAR: Regular rate. LUNGS: Diminished breath sounds. ABDOMEN: Soft, obese. MUSCULOSKELETAL: Nontender. Positive [place] [address] CONSULTATION Name: DON CHERRYCristine Alejandro Room: [address]#: [id number] Admission: 12/14/19 Attend Phys: David Lester MD Discharge: 12/21/19 Date of : 64 Report #: [id number] PSYCHIATRIC: Awake, alert. LABORATORY DATA: White cell count 33, hemoglobin 8.3, platelets 112. Sodium 122, potassium 4.1, chloride 92, bicarbonate 18, BUN 89, creatinine 4.8, glucose 139, calcium 6.8, albumin 1.5. ASSESSMENT: 1. Acute kidney injury with a creatinine up to 4.8, it was 1.6 on 12/07/2019. This is in the setting of nausea, vomiting and chemotherapy. 2. Hyponatremia. Sodium was 131 on 12/07/2019, 122 on 12/19/2019 in the setting of chemotherapy, nausea, vomiting and evidence of edema. Echo on 12/07/2019 showed an ejection fraction of 65-70%. 3. Metabolic acidosis. 4. Hypocalcemia. 5. Hypoalbuminemia with an albumin 1.5. 6. Breast cancer. We started chemotherapy in early November with Taxol, carboplatin, Herceptin, and Perjeta. 7. Hypertension. PLAN: 1. Good urine output. Has received 3% saline. We will recheck lab. 2. Check blood cultures. His blood pressure is low. 3. Discontinue proton pump inhibitor. 4. Check U/A. 5. Check renal ultrasound. 6. Discontinue aluminum magnesium hydroxide. 7. Check urine sodium, urinalysis and urine potassium, TSH, cortisol. 8. Check chest x-ray now. 9. Check magnesium. 10. She has asymptomatic hypocalcemia. We will give some oral calcium and check phosphorus level. We will follow along with you closely. Thank you for requesting my opinion in the care and management of this patient. <ELECTRONICALLY SIGNED> By: Guy Oliveros MD 12/22/19 1246 1557 1719Aanabel Oliveros MD /nt
--- NOTE | 2019-12-22 16:44 | CON ---
[address] [address] CONSULTATION Name: GREY CHERRY Room: [address] M.R.#: [id number] Admission: 12/14/19 Attend Phys: David Lester MD Discharge: 12/21/19 Date of : 64 Report #: [id number] THIS REPORT FOR: //name// cc: BABAK Boo family physician/PCP BABAK - Ema family physician/PCP ~ THIS REPORT FOR: //name// CC: BABAK physician/PCP David Lester MD DATE OF SERVICE: 12/20/2019 REFERRING PHYSICIAN: David Lester MD REASON FOR CONSULTATION: Nausea, vomiting, diarrhea. IMPRESSION: 1. Nausea, vomiting and diarrhea, likely related to chemo-induced enterocolitis versus spontaneous bacterial peritonitis. 2. Septic shock requiring multiple pressors. 3. Severe metabolic acidosis secondary to lactic acidosis. 4. Decompensated liver disease, likely related to nonalcoholic fatty liver. (CT scan done on 12/06 demonstrated nodular liver contour with mild perihepatic ascites and ascites compatible with portal hypertension). 5. Acute renal failure, requiring CRRT. 6. Breast cancer, currently undergoing chemotherapy for the same, which is currently on hold. 7. Abnormal CAT scan demonstrating thickening of the duodenum, small bowel and possible colon. RECOMMENDATIONS: 1. At the present time, supportive care is all that can be given, this includes pressors, IV antibiotics, etc. Consider antifungal treatment as well. 2. We will check stat labs at this time to include a CBC, CMP, protime with INR and acute hepatitis panel. 3. I have no plans for any endoscopic studies at this time. 4. I do not see the need for a CT scan or diagnostic paracentesis. The patient's prognosis is very dismal at this time. HISTORY OF PRESENT ILLNESS: The patient is an unfortunate 59-year-old white female who was admitted to the hospital earlier in the month with complaints of nausea, vomiting, diarrhea. It was thought that was probably related to chemotherapy, which she is undergoing for breast cancer. She was eventually discharged to home only to be readmitted on the with recurrent issues of nausea, vomiting, diarrhea and just severe fatigue[place] [address] CONSULTATION Name: GARRICKCÉSARDON BARRIGACristine Alejandro Room: [address]#: [id number] Admission: 12/14/19 Attend Phys: David Lester MD Discharge: 12/21/19 Date of : 64 Report #: [id number] developed multisystem organ failure with the patient being on the ventilator having renal failure and having demonstrated evidence of decompensated liver disease with shock liver. She is currently on the ventilator on 4 pressors and make any urine. She is on CRRT. Most of the history is obtained from the patient's records as there is no family available due to the COVID-19 pandemic and restrictions related to the same. ALLERGIES: None. MEDICATIONS: See the MAR. PAST MEDICAL AND SURGICAL HISTORY: Remarkable for breast cancer, stage 2, on chemotherapy; history of morbid obesity. She has a port placed in the past. SOCIAL HISTORY: She does not smoke or drink and there is no family history that we know of. PHYSICAL EXAMINATION: GENERAL: Revealed an ill-appearing 59-year-old obese white female who is currently on the ventilator. VITAL SIGNS: Her pressure is 88/40 and her pulse is 115. CARDIOPULMONARY: Tachycardic, regular rhythm. LUNGS: Coarse. ABDOMEN: Soft and nontender. No rebound or guarding noted. LABORATORY DATA: Her laboratory tests from this morning revealed a white count of 47.2, hemoglobin 8.9, platelet count 199,000, MCV is 98.4 and RDW is 14.2. Her white count on admission was 35,000 with a hemoglobin of 11. Her sodium 121, potassium 5.1, chloride 88, bicarbonate 8, BUN 99, creatinine 6.1. Her albumin is only 1.6. Her bilirubin was 3.2 with an alkaline phosphatase of 276 and AST of 3229 and ALT of 1360. Albumin again was 1.6. On admission, her bilirubin was 1.3 with an alkaline phosphatase of 126 and AST of 59 and ALT of 50. CT scan, as I mentioned above, was reviewed and did reveal ____. DISCUSSION: At the present time, the patient's prognosis is extremely dismal at this time. She has multisystem organ failure, including liver failure above everything else. I would advocate for comfort care at this time. I am not going to have much to offer her. There are no plans for any endoscopic studies at this time. <ELECTRONICALLY SIGNED> By: Jimenez De Los Santos DO 12/22/19 [id number] De Los Santos DO /nt
--- NOTE | 2019-12-22 17:27 | NUR ---
entered onto restraint log 12/22/19.
== END 2019-12-21 12:27 | DRG 871 ==
LOC: M.ERS 17:04 → M.2W 18:07 → M.TBA-ER 18:07 → M.2W 19:45 → M.ICU 12-19 17:15
PROVIDERS: Family Medicine; Internal Medicine; Internal Medicine Gastroenterology; Internal Medicine Hematology & Oncology; Internal Medicine Nephrology; Internal Medicine Pulmonary Disease; ADMIT Internal Medicine
PROC: 5A1945Z Respiratory Ventilation, 24-96 Consecutive Hours (ICD-10-PCS; principal; 2019-12-20)
PROC: 02HV33Z Insertion of Infusion Device into Superior Vena Cava, Percutaneous Approach (ICD-10-PCS; principal; 2019-12-20)
PROC: 0BH17EZ Insertion of Endotracheal Airway into Trachea, Via Natural or Artificial Opening (ICD-10-PCS; principal; 2019-12-20)
PROC: 5A1D70Z Performance of Urinary Filtration, Intermittent, Less than 6 Hours Per Day (ICD-10-PCS; principal; 2019-12-20)
PROC: B548ZZA Ultrasonography of Superior Vena Cava, Guidance (ICD-10-PCS; principal; 2019-12-20)
PROC: 30233N1 Transfusion of Nonautologous Red Blood Cells into Peripheral Vein, Percutaneous Approach (ICD-10-PCS; 2019-12-21)
PROC: 30233K1 Transfusion of Nonautologous Frozen Plasma into Peripheral Vein, Percutaneous Approach (ICD-10-PCS; 2019-12-21)
DX: A41.9 Sepsis, unspecified organism (principal); N17.0 Acute kidney failure with tubular necrosis; R65.21 Severe sepsis with septic shock; J96.01 Acute respiratory failure with hypoxia; D65 Disseminated intravascular coagulation [defibrination syndrome]; K72.00 Acute and subacute hepatic failure without coma; K52.1 Toxic gastroenteritis and colitis; Z68.43 Body mass index [BMI] 50.0-59.9, adult; E87.1 Hypo-osmolality and hyponatremia; B37.0 Candidal stomatitis; E87.2 Acidosis; D62 Acute posthemorrhagic anemia; C50.919 Malignant neoplasm of unspecified site of unspecified female breast; E86.0 Dehydration; R73.9 Hyperglycemia, unspecified; E66.01 Morbid (severe) obesity due to excess calories; E83.51 Hypocalcemia; E88.09 Other disorders of plasma-protein metabolism, not elsewhere classified; I10 Essential (primary) hypertension; T38.0X5A Adverse effect of glucocorticoids and synthetic analogues, initial encounter; R11.2 Nausea with vomiting, unspecified; T45.1X5A Adverse effect of antineoplastic and immunosuppressive drugs, initial encounter; Z79.899 Other long term (current) drug therapy; Y92.89 Other specified places as the place of occurrence of the external cause; K74.60 Unspecified cirrhosis of liver